=== PATIENT | male | born 1970 | race Caucasian/White ===

== ENCOUNTER 2019-08-27 14:23 | Emergency (ER) | payer OTHER ==
[2019-08-27 15:22] LABS: ABS Basophils 0.1 10^3/ul (0-0.2); ABS Eosinophils 0.1 10^3/ul (0-0.6); ABS Lymphocytes 1.5 10^3/ul (1.0-4.8); ABS Monocytes 0.4 10^3/ul (0-0.8); ABS Neutrophils 3.8 10^3/ul (1.5-7.7); Hematocrit 41 % (42-52); Hemoglobin 13.9 g/dL (14.0-18.0); Lymphocyte % 25.3 %; Mean Corpuscular HGB Conc 34 g/dL (31-36); Mean Corpuscular Hemoglobin 31 pg (27-31); Mean Corpuscular Volume 91 fL (80-94); Mean Platelet Volume 7.8 fL (7.4-10.4); Nucleated Red Blood Cells % 0.1; Platelet Count 181 10^3/uL (150-450); Red Blood Count 4.52 10^6 /uL (4.18-5.48); Red Cell Distribution Width 14 % (10-15); White Blood Count 5.8 10^3/uL (3.5-10.8)
[2019-08-27 15:37] LABS: Albumin 4.5 g/dL (3.2-5.2); Albumin/Globulin Ratio 1.7 (1-3); BUN/Creatinine Ratio 12.8 (8-20); Calcium 9.7 mg/dL (8.6-10.3); EGFR African American 128.5 (>60); EGFR Non-African American 106.2 (>60); Globulin 2.6 g/dL (2-4); Potassium 4.5 mmol/L (3.5-5.0); Total Bilirubin 0.5 mg/dL (0.2-1.0); Total Protein 7.1 g/dL (6.4-8.9)
[2019-08-27] MEDS ORDERED: Iodixanol* (CONTRAST) 320 MG/ML 100 ML SDV IV ONE (16:46)
--- NOTE | 2019-08-27 16:57 | ED ---
Abdominal Pain/Male - HPI Summary HPI Summary: Pt. is a 49 y.o male who presents to the ER for pain to left hip/groin x one week. Pt. denies falls or injury. Pain worse with walking. Pain occasionally radiates to left testicle. Hx of obesity and DM. Pt. denies fever, vomiting, scrotal swelling, wounds, redness. Sxs are moderate in severity. - History of Current Complaint Chief Complaint: EDHipPelvisInjury Stated Complaint: GROIN PAIN PER PT Time Seen by Provider: 08/27/19 14:46 Hx Obtained From: Patient Pain Intensity: 8 - Allergies/Home Medications Allergies/Adverse Reactions: Allergies Allergy/AdvReac Type Severity Reaction Status Date / Time lactose Allergy GI Upset Verified 08/27/19 14:27 Home Medications: Home Medications Atorvastatin* [Lipitor*] 40 mg PO DAILY 08/27/19 [History Confirmed 08/27/19] Divalproex DR TAB(*) [Depakote DR(*)] 500 mg PO BID 08/27/19 [History Confirmed 08/27/19] lamoTRIgine TAB(*) [LaMICtal TAB(*)] 100 mg PO BID 08/27/19 [History Confirmed 08/27/19] metFORMIN* [Glucophage 500 MG TAB *] 500 mg PO BID 08/27/19 [History Confirmed 08/27/19] PMH/Surg Hx/FS Hx/Imm Hx Previously Healthy: Yes Endocrine/Hematology History: Reports: Hx Diabetes - II Cardiovascular History: Denies: Hx Hypertension - borderline per pt - Surgical History Surgery Procedure, Year, and Place: cholecystectomy Infectious Disease History: No Infectious Disease History: Denies: Traveled Outside the [place] in Last 30 Days - Family History Known Family History: Positive: Non-Contributory - Social History Occupation: Employed Full-time Lives: With Family Alcohol Use: None Substance Use Type: Reports: None Smoking Status (MU): Never Smoked Tobacco Review of Systems Constitutional: Negative Negative: Fever, Chills Cardiovascular: Negative Respiratory: Negative Positive: Abdominal Pain. Negative: Vomiting, Nausea Genitourinary: Negative Negative: dysuria Positive: Other - Left hip pain? Skin: Negative Negative: Rash Neurological/Mental Status: Negative Negative: Weakness, Paresthesia, Numbness All Other Systems Reviewed And Are Negative: Yes Physical Exam Triage Information Reviewed: Yes Vital Signs On Initial Exam: Initial Vitals Temp Pulse Resp BP Pulse Ox 97.1 F 90 18 162/98 95 08/27/19 14:24 08/27/19 14:24 08/27/19 14:24 08/27/19 14:24 08/27/19 14:24 Vital Signs Reviewed: Yes Appearance: Positive: Well-Appearing - Pt. lying on bed in NAD. Famiy member present. Skin: Positive: Warm, Dry Head/Face: Positive: Normal Head/Face Inspection Eyes: Positive: Normal, EOMI Neck: Positive: Supple Respiratory/Lung Sounds: Positive: Clear to Auscultation, Breath Sounds Present Cardiovascular: Positive: Normal, RRR Abdomen Description: Positive: Other: - Morbidly obese. Abd. is soft with mild tenderness to LLQ and moderate tenderness to left groin. I do not appreciate palpable mass. Testicle exam reveals no erythema, edema, or elevation in testicle. No testicle pain on palpation. Exam performed with pt.'s nurseThony. Musculoskeletal: Positive: Normal, Strength/ROM Intact, Other - Good left PD pulse. Pain with rotate of left hip. No leg edema or erythema. Neurological: Positive: Normal, CN Intact II-III Psychiatric: Positive: Affect/Mood Appropriate Procedures - Sedation Patient Received Moderate/Deep Sedation with Procedure: No Diagnostics - Vital Signs Vital Signs Temp Pulse Resp BP Pulse Ox 08/27/19 14:24 97.1 F 90 18 162/98 95 - Laboratory Lab Results: Lab Results 08/27/19 08/27/19 Range/Units 15:12 15:12 WBC 5.8 (3.5-10.8) 10^3/uL RBC 4.52 (4.18-5.48) 10^6 /uL Hgb 13.9 L (14.0-18.0) g/dL Hct 41 L (42-52) % MCV 91 (80-94) fL MCH 31 (27-31) pg MCHC 34 (31-36) g/dL RDW 14 (10-15) % Plt Count 181 (150-450) 10^3/uL MPV 7.8 (7.4-10.4) fL Neut % (Auto) 65.8 % Lymph % (Auto) 25.3 % [place] % (Auto) 6.9 % Eos % (Auto) 1.0 % Baso % (Auto) 1.0 % Absolute Neuts (auto) 3.8 (1.5-7.7) 10^3/ul Absolute Lymphs (auto) 1.5 (1.0-4.8) 10^3/ul Absolute Monos (auto) 0.4 (0-0.8) 10^3/ul Absolute Eos (auto) 0.1 (0-0.6) 10^3/ul Absolute Basos (auto) 0.1 (0-0.2) 10^3/ul Absolute Nucleated RBC 0.0 10^3/ul Nucleated RBC % 0.1 Sodium 139 (135-145) mmol/L Potassium 4.5 (3.5-5.0) mmol/L Chloride 102 (101-111) mmol/L Carbon Dioxide 29 (22-32) mmol/L Anion Gap 8 (2-11) mmol/L BUN 10 (6-24) mg/dL Creatinine 0.78 (0.67-1.17) mg/dL Est GFR ( Amer) 128.5 (>60) Est GFR (Non-Af Amer) 106.2 (>60) BUN/Creatinine Ratio 12.8 (8-20) Glucose 132 H (70-100) mg/dL Calcium 9.7 (8.6-10.3) mg/dL Total Bilirubin 0.50 (0.2-1.0) mg/dL AST 18 (13-39) U/L ALT 16 (7-52) U/L Alkaline Phosphatase 84 (34-104) U/L Total Protein 7.1 (6.4-8.9) g/dL Albumin 4.5 (3.2-5.2) g/dL Globulin 2.6 (2-4) g/dL Albumin/Globulin Ratio 1.7 (1-3) Result Diagrams: 08/27/19 15:12 08/27/19 15:12 Lab Statement: Any lab studies that have been ordered have been reviewed, and results considered in the medical decision making process. Abdominal Pain Male Course/Dx - Course Course Of Treatment: Pt. with LLQ/groin/hip pain. Afebrile. No testicular pain or edema on exam. Difficult exam secondary to pt.'s body habitus. Will obtain ct to evaluate for inguinal hernia, diverticulitis, kidney stone. Labs unremarkable. - Diagnoses Differential Diagnosis/HQI/PQRI: Diverticulitis, Renal Colic, Ureteral Stone, Urinary Tract Infection Provider Diagnoses: Hip pain, Groin pain Discharge ED - Sign-Out/Discharge Documenting (check all that apply): Sign-Out Patient Signing out patient TO: Chen Thakkar - Discharge Plan Condition: Good Disposition: HOME Patient Education Materials: Groin Pain (ED), Hip Pain (ED), Bladder Stones (ED ) Forms: *Work Release Referrals: Roxy Deleon MD [Primary Care Provider] - John Zheng MD [Medical Doctor] - Additional Instructions: Please follow up with PCP and urology Increase fluids Tylenol or Motrin for pain as directed Return to ER for increased pain, fever, vomiting or if concerned - Billing Disposition and Condition Condition: GOOD Disposition: Home - Attestation Statements Provider Attestation: I was available for consultation for this patient. I did not evaluate the patient or participate in any medical decision making or disposition decisions unless I am specifically named in the chart as having consulted on the patient. If I have consulted on the patient, please see my own ED note on the patient encounter. Kenny Gaspar MD
[2019-08-27 17:03] LABS: Urine Appearance Clear; Urine Bilirubin Negative (Negative); Urine Blood Negative (Negative); Urine Color Yellow; Urine Glucose Negative (Negative); Urine Ketones Negative (Negative); Urine Nitrite Negative (Negative); Urine Protein Negative (Negative); Urine Specific Gravity 1.019 (1.010-1.030); Urine Urobilinogen Negative (Negative)
[2019-08-27 17:54] VITALS: BP 147/85
== END 2019-08-27 17:53 | disposition home or self-care (01) ==
LOC: ED 14:23
DX: M25.552 Pain in left hip (principal); R10.32 Left lower quadrant pain; K76.0 Fatty (change of) liver, not elsewhere classified; K86.89 Other specified diseases of pancreas; E11.9 Type 2 diabetes mellitus without complications; Z79.84 Long term (current) use of oral hypoglycemic drugs; Z91.011 Allergy to milk products
CPT/HCPCS: 36415; 74177; 80053; 81003; 85025; 99282; Q9967